=== PATIENT | male | born 1950 | race Caucasian/White ===

== ENCOUNTER 2018-05-22 08:29 | Inpatient (IN) | payer MEDICARE, BC ==
[~2018-05-22 08:29] MED LIST: FENTAnyl 50 MCG/ML VIAL; MIDAZOLAM 1 MG/ML 2 ML INJ; PROPOFOL 20 ML
[2018-05-22] MEDS ORDERED: oxyCODONE 5 MG TAB PO ×2 (10:00)
[2018-05-22] MEDS: CEFAZOLIN 2 GM/50 ML (PMX) 50 ML (FOR WT < 120 KG) IVPB (10:00)
[2018-05-22] MEDS ORDERED: LABETALOL HCL 20MG INJ IV (10:00)
[2018-05-22] MEDS ORDERED: NACL 0.9% 3 ML SYG IV (10:00)
[2018-05-22] MEDS ORDERED: NA PHOSPHATE/BIPHOS 133 ML ENEMA PR (10:00)
[2018-05-22] MEDS ORDERED: NALOXONE (0.4 MG/ML) INJ IV (10:00)
[2018-05-22] MEDS ORDERED: SENNA/DOCUSATE NA (8.6MG/50MG) TAB PO (10:00)
[2018-05-22] MEDS ORDERED: FENTAnyl 50 MCG/ML VIAL IV ×2 (10:00)
[2018-05-22] MEDS ORDERED: BISACODYL 10 MG SUPP PR (10:00)
[2018-05-22] MEDS ORDERED: DIPHENHYDRAMINE 50 MG INJ IV ×2 (10:00)
[2018-05-22] MEDS ORDERED: BETHANECHOL 25 MG TAB PO (10:00)
[2018-05-22] MEDS ORDERED: HYDROmorphONE 1 MG/5 ML IV SYRINGE IV ×3 (10:00)
[2018-05-22] MEDS ORDERED: IPRATROPIUM (NEB) 0.5 MG/2.5 ML AMP HHN (10:00)
[2018-05-22] MEDS ORDERED: LEVALBUTEROL (NEB) 1.25 MG/0.5 ML AMP HHN (10:00)
[2018-05-22] MEDS ORDERED: hydrALAzine 20 MG INJ IV ×2 (10:00→13:30)
[2018-05-22] MEDS ORDERED: MAGNESIUM HYDROXIDE 30ML CUP PO (10:00)
[2018-05-22] MEDS: TRANEXAMIC ACID 1,000 MG in D5W 100 ML AT CLOSURE X1 IVPB ×2 (10:21→11:07)
[2018-05-22] MEDS ORDERED: BUPIVACAINE 0.75%/DEXT (SPINAL) 2 ML INJ (10:27)
[2018-05-22] MEDS: POLYMYXIN B 500000 UNIT INJ IRR (11:04)
[2018-05-22] MEDS: BACITRACIN 50000 UNITS INJ (11:04)
[2018-05-22] MEDS: TRANEXAMIC ACID 1,000 MG in D5W 100 ML AT INCISION X1 IVPB (11:07)
[2018-05-22] MEDS: MEPERIDINE 25 MG INJ IV (12:19)
[2018-05-22] MEDS: ONDANSETRON 4 MG INJ IV ×3 (12:19→22:00)
[2018-05-22] MEDS: ASPIRIN (EC) 325 MG TAB PO (12:55)
[2018-05-22] MEDS: DOCUSATE SODIUM 100 MG CAP PO (12:56)
[2018-05-22] MEDS: CEFAZOLIN 1 GM/50 ML (PMX) 50 ML IVPB ×2 (12:56→18:19)
[2018-05-22] MEDS: SOD CHLORIDE 0.9% 1,000 ML IV ×2 (14:58→22:02)
[2018-05-22] MEDS: LEVOTHYROXINE 112 MCG TAB PO (15:01)
[2018-05-22] MEDS: GABAPENTIN 100 MG CAP PO ×2 (15:45→20:07)
[2018-05-22] MEDS ORDERED: ONDANSETRON 4 MG INJ IV (16:17)
[2018-05-22] MEDS ORDERED: ACETAMINOPHEN 1000 MG/100 ML IVPB IVPB (16:17)
[2018-05-22] MEDS ORDERED: LIDOCAINE 100 MG SYRINGE IV (16:17)
[2018-05-22] MEDS ORDERED: DEXAMETHASONE 4 MG/ML 1 ML INJ IV (16:17)
[2018-05-22] MEDS: oxyCODONE 5 MG TAB PO (20:07)
[2018-05-22] MEDS: ATORVASTATIN 80 MG TAB PO (20:07)
[2018-05-22] MEDS ORDERED: GABAPENTIN 100 MG CAP PO (21:00)
[2018-05-23] MEDS: CEFAZOLIN 1 GM/50 ML (PMX) 50 ML IVPB (02:05)
[2018-05-23] MEDS: SOD CHLORIDE 0.9% 1,000 ML IV (03:35)
[2018-05-23] MEDS: ONDANSETRON 4 MG INJ IV (03:36)
[2018-05-23 05:04] LABS: ADD MAN DIFF? NO
[2018-05-23 05:11] LABS: HEMATOCRIT 35.8 % (42.0-52.0); HEMOGLOBIN 12.3 g/dl (14.0-18.0); LYMPHOCYTES # 1.2 10^3/ul (0.8-2.9); LYMPHOCYTES % 12.2 % (15.0-51.0); MEAN CORPUSCULAR HEMOGLOBIN 30.7 pg (29.0-33.0); MEAN CORPUSCULAR HGB CONC 34.4 g/dl (32.0-37.0); MEAN CORPUSCULAR VOLUME 89.3 fl (82.0-101.0); MEAN PLATELET VOLUME 9.2 fl (7.4-10.4); MONOCYTE # 0.8 10^3/ul (0.3-0.9); NEUTROPHIL # 7.9 10^3/ul (1.6-7.5); NEUTROPHILS % 79.3 % (39.0-77.0); PLATELET COUNT 169 10^3/UL (140-415); RED BLOOD COUNT 4.01 10^6/ul (4.70-6.10); RED CELL DISTRIBUTION WIDTH 13.5 % (11.5-14.5)
[2018-05-23 05:57] LABS: ANION GAP 8 (8-16); BLOOD UREA NITROGEN 12 mg/dl (7-20); CALCIUM 8.4 mg/dl (8.4-10.2); CARBON DIOXIDE 28 mmol/L (21-31); CHLORIDE 108 mmol/L (97-110); CREATININE 0.81 mg/dl (0.61-1.24); GLUCOSE 113 mg/dl (70-220); POTASSIUM 4.3 mmol/L (3.5-5.1); SODIUM 140 mmol/L (135-144)
[2018-05-23] MEDS: LEVOTHYROXINE 112 MCG TAB PO (06:13)
[2018-05-23] MEDS: PANTOPRAZOLE (EC) 40 MG TAB PO (06:13)
[2018-05-23] MEDS: oxyCODONE 5 MG TAB PO ×2 (07:11→14:22)
[2018-05-23] MEDS: FERROUS FUMARATE (SR) TAB PO (08:14)
[2018-05-23] MEDS: LOSARTAN 25 MG TAB PO (08:14)
[2018-05-23] MEDS: ASPIRIN (EC) 325 MG TAB PO (08:14)
[2018-05-23] MEDS: DOCUSATE SODIUM 100 MG CAP PO (08:14)
[2018-05-23] MEDS: GABAPENTIN 100 MG CAP PO ×2 (08:15→12:57)
[2018-05-23] MEDS ORDERED: CELECOXIB 200 MG CAP PO (09:00)
[2018-05-23] MEDS: CELECOXIB 100 MG CAP PO (10:58)
== END 2018-05-23 17:00 | disposition home health service (06) | DRG 470 ==
LOC: SDS 08:29 → REC 09:32 → MS1 13:20
PROVIDERS: Orthopaedic Surgery
PROC: 0SR904A Replacement of Right Hip Joint with Ceramic on Polyethylene Synthetic Substitute, Uncemented, Open Approach (ICD-10-PCS; principal; 2018-05-22 10:00)
DX: M16.11 Unilateral primary osteoarthritis, right hip (principal); I25.10 Atherosclerotic heart disease of native coronary artery without angina pectoris; I10 Essential (primary) hypertension; E03.9 Hypothyroidism, unspecified; E78.5 Hyperlipidemia, unspecified
CPT/HCPCS: 72170; 80048; 83735; 84100; 85025; 86850; 86900; 86901; 87081; 88304; 88311; 97110; 97116; 97161; 97167; 97530; 97535; 99217